=== PATIENT | female | born 1990 | race Caucasian/White ===

== ENCOUNTER 2023-02-25 17:27 | Emergency (ER) | payer OTHER, SELFPAY ==
[2023-02-25 18:58] VITALS: BP 107/58; PULSE 78; RESP 18; TEMP 36.4; O2SAT 100
--- NOTE | 2023-02-25 20:18 | PC.NURSE ---
Pt A&Ox4 non compliant with c collar. Pt removed collar herself left with two kids before being seen.
== END 2023-02-25 21:35 | disposition left against medical advice (07) ==
DX: S19.9XXA Unspecified injury of neck, initial encounter (principal); V49.50XA Passenger injured in collision with unspecified motor vehicles in traffic accident, initial encounter
CPT/HCPCS: 99199